=== PATIENT | female | born 1980 | race Native Hawaiian/Other Pacific Islander ===

== ENCOUNTER → 2017-08-04 13:19 | Outpatient (CLI) | payer OTHER | END | disposition home or self-care (01) | LOC: AMB 13:19 | DX: S61.219A Laceration without foreign body of unspecified finger without damage to nail, initial encounter (principal) ==

== ENCOUNTER 2018-08-01 10:17 | Emergency (ER) | payer OTHER ==
[~2018-08-01] VITALS: Ht 170.2 cm; Wt 71.7 kg
[2018-08-01 11:25] VITALS: BP 117/67; TEMP 98.1
== END 2018-08-01 11:30 | disposition home or self-care (01) ==
LOC: ED 10:17
DX: S30.860A Insect bite (nonvenomous) of lower back and pelvis, initial encounter (principal); L03.317 Cellulitis of buttock; W57.XXXA Bitten or stung by nonvenomous insect and other nonvenomous arthropods, initial encounter
CPT/HCPCS: 99282